=== PATIENT | female | born 1945 ===

== ENCOUNTER 2022-11-20 04:14 | Outpatient (CLI) | payer MEDICARE, OTHER, SELFPAY ==
[2022-11-20 14:26] LABS: Kit/Specimen SENT
== END 2022-11-20 04:15 | disposition home or self-care (01) ==
PROVIDERS: Visit Provider Psychiatry & Neurology Neurology
DX: R51.9 Headache, unspecified (principal); G89.29 Other chronic pain; R79.9 Abnormal finding of blood chemistry, unspecified; R20.0 Anesthesia of skin
CPT/HCPCS: 36415